=== PATIENT | male | born 1985 | race Caucasian/White ===

== ENCOUNTER → 2020-12-31 10:59 | Outpatient (BNVA) | payer MEDICARE, MEDICAID, SELFPAY | PROVIDERS: Family Provider Nurse Practitioner; PCP Nurse Practitioner; Visit Provider Nurse Practitioner | DX: M54.9 Dorsalgia, unspecified (principal); G89.29 Other chronic pain; I10 Essential (primary) hypertension; K21.9 Gastro-esophageal reflux disease without esophagitis; F41.8 Other specified anxiety disorders; E78.2 Mixed hyperlipidemia; G47.9 Sleep disorder, unspecified; K05.10 Chronic gingivitis, plaque induced | CPT/HCPCS: 80053; 80061; 84443; 85025 ==

== ENCOUNTER 2021-02-03 16:34 | Outpatient (CLI) | payer MEDICARE, MEDICAID, SELFPAY ==
[2021-02-03 17:28] LABS: Basophils # 0.1 10^3/uL (0.0-0.1); Basophils % 0.9 %; Eosinophils # 0.1 10^3/uL (0.0-0.8); Eosinophils % 1.8 %; Hematocrit 47.4 % (42.0-52.0); Hemoglobin 15.8 g/dL (11.7-16.6); Lymphocytes # 1.8 10^3/uL (0.8-4.8); Lymphocytes % 31.8 %; Mean Corpuscular HGB Conc 33.3 g/dL (30.0-36.0); Mean Corpuscular Volume 92.9 fl (80-94); Mean Platelet Volume 11.5 fL (7.4-10.4); Monocytes # 0.4 10^3/uL (0.2-0.9); Monocytes % 7.4 %; Neutrophils # 3.22 10^3/uL (1.8-7.7); Neutrophils % 57.7 %; Nucleated Red Blood Cells % 0 %; Platelet Count 279 10^3/cmm (130-400); Red Cell Distribution Width 12.8 % (12.1-15.1); White Blood Count 5.6 10^3/uL (4.0-10.0)
[2021-02-03 17:33] LABS: Partial Thromboplastin Time 29.9 SECONDS (23.9-36.7)
[2021-02-03 18:01] LABS: Alanine Aminotransferase 43 U/L (0-41); Albumin Level 4.1 g/dL (3.5-5.2); Alkaline Phosphatase 116 IU/L (40-130); Anion Gap 14.7 (5-19); Aspartate Amino Transferase 24 U/L (0-40); Blood Urea Nitrogen 13 mg/dL (6-20); Calcium 8.4 mg/dL (8.5-10.5); Carbon Dioxide 25 mmol/L (22-29); Chloride 106 mmol/L (98-107); Glomerular Filtration Rate 127.6 mL/min (90-130); Glucose 88 mg/dL (65-115); Osmolality Calculated 292 mOsm/kg (285-295); Potassium 4.7 mmol/L (3.5-5.1); Sodium 141 mmol/L (136-145); Total Bilirubin 0.2 mg/dL (0.15-1.2); Total Protein 7.1 g/dL (6.6-8.7)
== END 2021-02-03 16:35 | disposition home or self-care (01) ==
LOC: LAB 16:43
PROVIDERS: PCP Nurse Practitioner; Visit Provider Surgery Surgical Oncology
DX: Z01.818 Encounter for other preprocedural examination (principal)
CPT/HCPCS: 36415; 80053; 85025; 85730

== ENCOUNTER → 2021-02-04 16:52 | Outpatient (BNVA) | payer MEDICARE, MEDICAID, SELFPAY | PROVIDERS: PCP Nurse Practitioner; Visit Provider Family Medicine | DX: Z01.812 Encounter for preprocedural laboratory examination (principal); Z20.822 Contact with and (suspected) exposure to COVID-19 | CPT/HCPCS: 87635 ==

== ENCOUNTER → 2021-02-17 16:27 | Outpatient (BNVA) | payer MEDICARE, MEDICAID, SELFPAY | PROVIDERS: PCP Nurse Practitioner; Visit Provider Specialist | DX: G40.909 Epilepsy, unspecified, not intractable, without status epilepticus (principal); Z96.82 Presence of neurostimulator; F17.200 Nicotine dependence, unspecified, uncomplicated | CPT/HCPCS: 95972; 99203; 99205 ==

== ENCOUNTER → 2021-03-24 16:48 | Outpatient (BNVA) | payer MEDICARE, MEDICAID, SELFPAY | PROVIDERS: PCP Nurse Practitioner; Visit Provider Nurse Practitioner | DX: M54.9 Dorsalgia, unspecified (principal); G89.29 Other chronic pain; E03.8 Other specified hypothyroidism; I10 Essential (primary) hypertension; K21.9 Gastro-esophageal reflux disease without esophagitis; F41.8 Other specified anxiety disorders; E78.2 Mixed hyperlipidemia; K05.10 Chronic gingivitis, plaque induced; J30.89 Other allergic rhinitis; G47.9 Sleep disorder, unspecified | CPT/HCPCS: 80053; 84443 ==

== ENCOUNTER → 2021-04-08 15:29 | Outpatient (BNVA) | payer MEDICARE, MEDICAID, SELFPAY | PROVIDERS: PCP Nurse Practitioner; Visit Provider Specialist | DX: G40.909 Epilepsy, unspecified, not intractable, without status epilepticus (principal); F41.8 Other specified anxiety disorders; G43.019 Migraine without aura, intractable, without status migrainosus; Z96.82 Presence of neurostimulator | CPT/HCPCS: 95970; 99214 ==

== ENCOUNTER → 2021-07-28 10:10 | Outpatient (BNVA) | payer MEDICARE, MEDICAID, SELFPAY | PROVIDERS: PCP Nurse Practitioner; Visit Provider Nurse Practitioner | DX: I10 Essential (primary) hypertension (principal); R73.9 Hyperglycemia, unspecified | CPT/HCPCS: 80053; 80061; 83036; 84443; 85025 ==

== ENCOUNTER 2021-08-21 09:29 | Outpatient (CLI) | payer MEDICARE, MEDICAID, SELFPAY ==
--- NOTE | 2021-08-21 10:00 | US_ITS ---
WS: [id number] RIGHT UPPER QUADRANT ULTRASOUND HISTORY: R74.8 - Abnormal levels of other serum enzymes COMPARISON: None available. Liver: 18.1 cm in length. Moderately enlarged liver. Coarse echotexture and poor evaluation of the en tire liver. Mass would be difficult to exclude. Portal Vein: Normal hepatopetal flow with monophasic waveform. Gallbladder: Normally distended gallbladder with no stones or wall thickening. CBD: 0.4 cm Pancreas: Completely obscured. Right kidney: 11.2 cm in length. Normal size and echogenicity. No hydronephrosis or mass. Aorta and IVC: Poorly visualized. No ascites. US/US liver [id number] IMPRESSION: 1. Technically very difficult and limited evaluation of the RIGHT upper quadra nt due to body habitus. 2. Moderate enlargement of the liver with hepatic steatosis. The entire liver is not well visualized. 3. Negative gallbladder. 4. Pancreas not identified.
== END 2021-08-21 09:30 | disposition home or self-care (01) ==
PROVIDERS: PCP Nurse Practitioner; Visit Provider Nurse Practitioner
DX: R74.8 Abnormal levels of other serum enzymes (principal); R16.0 Hepatomegaly, not elsewhere classified; K76.0 Fatty (change of) liver, not elsewhere classified
CPT/HCPCS: 76705

== ENCOUNTER → 2021-10-13 15:05 | Outpatient (BNVA) | payer MEDICARE, MEDICAID, SELFPAY | PROVIDERS: PCP Nurse Practitioner; Visit Provider Specialist | DX: G43.711 Chronic migraine without aura, intractable, with status migrainosus (principal); G40.109 Localization-related (focal) (partial) symptomatic epilepsy and epileptic syndromes with simple partial seizures, not intractable, without status epilepticus | CPT/HCPCS: 99214 ==

== ENCOUNTER → 2021-10-30 10:17 | Outpatient (BNVA) | payer MEDICARE, MEDICAID, SELFPAY | PROVIDERS: PCP Nurse Practitioner; Visit Provider Specialist | DX: G43.711 Chronic migraine without aura, intractable, with status migrainosus (principal); G40.909 Epilepsy, unspecified, not intractable, without status epilepticus; Z96.82 Presence of neurostimulator | CPT/HCPCS: 64615; 99212; 99213; J0585 ==

== ENCOUNTER → 2021-11-14 14:46 | Outpatient (BNVA) | payer MEDICARE, MEDICAID, SELFPAY | PROVIDERS: PCP Nurse Practitioner; Visit Provider Podiatrist Foot & Ankle Surgery | DX: L60.0 Ingrowing nail (principal); L60.3 Nail dystrophy | CPT/HCPCS: 11750; 99203; A6219; A6446 ==

== ENCOUNTER → 2021-12-04 08:30 | Outpatient (BNVA) | payer MEDICARE, MEDICAID, SELFPAY | PROVIDERS: PCP Nurse Practitioner; Visit Provider Podiatrist Foot & Ankle Surgery | DX: L60.0 Ingrowing nail (principal); L60.3 Nail dystrophy | CPT/HCPCS: 11750; 99213 ==

== ENCOUNTER → 2021-12-18 11:35 | Outpatient (BNVA) | payer MEDICARE, MEDICAID, SELFPAY | PROVIDERS: PCP Nurse Practitioner; Visit Provider Podiatrist Foot & Ankle Surgery | DX: L60.0 Ingrowing nail (principal); L60.3 Nail dystrophy | CPT/HCPCS: 99213; 99214 ==

== ENCOUNTER → 2022-01-14 16:54 | Outpatient (BNVA) | payer MEDICARE, MEDICAID, SELFPAY | PROVIDERS: PCP Nurse Practitioner; Visit Provider Nurse Practitioner | DX: E03.8 Other specified hypothyroidism (principal); E55.9 Vitamin D deficiency, unspecified; E78.2 Mixed hyperlipidemia; M54.9 Dorsalgia, unspecified; G89.29 Other chronic pain; F41.8 Other specified anxiety disorders; K05.10 Chronic gingivitis, plaque induced; J30.89 Other allergic rhinitis; I10 Essential (primary) hypertension; K21.9 Gastro-esophageal reflux disease without esophagitis; M25.561 Pain in right knee; M25.562 Pain in left knee | CPT/HCPCS: 80053; 82306; 84443; 85025 ==

== ENCOUNTER 2022-02-05 12:58 | Outpatient (CLI) | payer MEDICARE, MEDICAID, SELFPAY ==
--- NOTE | 2022-02-05 13:17 | XRR_ITS ---
PROCEDURE INFORMATION: Exam: XR Right Knee Exam date and time: 02/05/2022 1:33 PM Age: 36 years old Clinical indication: Pain; Bilateral; Prior surgery; Surgery type: Bilat knees, RT hip(partially fused); Additional info: M25.561 - pain in right knee TECHNIQUE: Imaging protocol: Radiologic exam of the Right knee. Views: 3 views. COMPARISON: MR knee RT wo con* [id number] 02/18/2016 4:23 PM FINDINGS: Bones/joints: Normal. Soft tissues: Normal. XR/XR knee RT 3V* [id number] IMPRESSION: No acute findings.
--- NOTE | 2022-02-05 13:17 | XRR_ITS ---
PROCEDURE INFORMATION: Exam: XR Left Knee Exam date and time: 02/05/2022 1:33 PM Age: 36 years old Clinical indication: Pain; Bilateral; Prior surgery; Patient HX: Bilat knees, RT hip(partially fused); Additional info: M25.561 - pain in right knee TECHNIQUE: Imaging protocol: Radiologic exam of the Left knee. Views: 3 views. COMPARISON: No relevant prior studies available. FINDINGS: Bones/joints: Normal. Soft tissues: Normal. XR/XR knee LT 3V* [id number] IMPRESSION: No acute findings.
== END 2022-02-05 12:59 | disposition home or self-care (01) ==
LOC: RAD 13:01
PROVIDERS: PCP Nurse Practitioner; Visit Provider Nurse Practitioner
DX: M25.561 Pain in right knee (principal); M25.562 Pain in left knee
CPT/HCPCS: 73562

== ENCOUNTER → 2022-04-30 15:39 | Outpatient (BNVA) | payer MEDICARE, MEDICAID, SELFPAY | PROVIDERS: PCP Nurse Practitioner; Visit Provider Specialist | DX: G43.711 Chronic migraine without aura, intractable, with status migrainosus (principal); G40.909 Epilepsy, unspecified, not intractable, without status epilepticus; Z96.82 Presence of neurostimulator; Z45.42 Encounter for adjustment and management of neurostimulator | CPT/HCPCS: 64615; 95970; J0585 ==

== ENCOUNTER → 2022-07-30 15:07 | Outpatient (BNVA) | payer MEDICARE, MEDICAID, SELFPAY | PROVIDERS: PCP Nurse Practitioner; Visit Provider Specialist | DX: G40.109 Localization-related (focal) (partial) symptomatic epilepsy and epileptic syndromes with simple partial seizures, not intractable, without status epilepticus (principal); G40.309 Generalized idiopathic epilepsy and epileptic syndromes, not intractable, without status epilepticus; Z96.82 Presence of neurostimulator | CPT/HCPCS: 95970; 99214 ==

== ENCOUNTER → 2022-08-03 15:17 | Outpatient (BNVA) | payer MEDICARE, MEDICAID, SELFPAY | PROVIDERS: PCP Nurse Practitioner; Visit Provider Nurse Practitioner | DX: M54.9 Dorsalgia, unspecified (principal); G89.29 Other chronic pain; F41.8 Other specified anxiety disorders; K21.9 Gastro-esophageal reflux disease without esophagitis; E03.8 Other specified hypothyroidism; I10 Essential (primary) hypertension; E78.2 Mixed hyperlipidemia; E55.9 Vitamin D deficiency, unspecified; J30.89 Other allergic rhinitis | CPT/HCPCS: 80053; 80061; 82306; 84443 ==

== ENCOUNTER → 2022-10-26 15:56 | Outpatient (BNVA) | payer MEDICARE, MEDICAID, SELFPAY | PROVIDERS: PCP Nurse Practitioner; Visit Provider Nurse Practitioner | DX: F41.8 Other specified anxiety disorders (principal); K21.9 Gastro-esophageal reflux disease without esophagitis; M54.9 Dorsalgia, unspecified; G89.29 Other chronic pain; E55.9 Vitamin D deficiency, unspecified; E78.2 Mixed hyperlipidemia; J30.89 Other allergic rhinitis; E03.8 Other specified hypothyroidism; I10 Essential (primary) hypertension | CPT/HCPCS: 80053; 82607; 85025 ==

== ENCOUNTER → 2022-12-01 12:01 | Outpatient (BNVA) | payer MEDICARE, MEDICAID, SELFPAY | PROVIDERS: PCP Nurse Practitioner; Visit Provider Specialist | DX: G40.309 Generalized idiopathic epilepsy and epileptic syndromes, not intractable, without status epilepticus (principal); G43.711 Chronic migraine without aura, intractable, with status migrainosus; Z96.82 Presence of neurostimulator | CPT/HCPCS: 95970; 99214 ==

== ENCOUNTER → 2023-02-05 09:55 | Outpatient (BNVA) | payer MEDICARE, MEDICAID, SELFPAY | PROVIDERS: PCP Nurse Practitioner Family; Visit Provider Nurse Practitioner Family | DX: I10 Essential (primary) hypertension; M25.50 Pain in unspecified joint; E78.2 Mixed hyperlipidemia; E55.9 Vitamin D deficiency, unspecified | CPT/HCPCS: 80053; 80061; 82306; 82607; 83735; 84443; 84550; 85025; 85651; 86038; 86140; 86431 ==

== ENCOUNTER → 2023-05-03 18:00 | Outpatient (BNVA) | payer MEDICARE, MEDICAID, SELFPAY | PROVIDERS: PCP Nurse Practitioner Family; Visit Provider Nurse Practitioner Family | DX: E55.9 Vitamin D deficiency, unspecified (principal); E78.2 Mixed hyperlipidemia; I10 Essential (primary) hypertension; M25.50 Pain in unspecified joint; F41.8 Other specified anxiety disorders; M54.9 Dorsalgia, unspecified; G89.29 Other chronic pain; J30.89 Other allergic rhinitis; E03.8 Other specified hypothyroidism; K21.9 Gastro-esophageal reflux disease without esophagitis; R73.9 Hyperglycemia, unspecified; R23.2 Flushing; G47.00 Insomnia, unspecified | CPT/HCPCS: 80053; 80061; 82306; 82607; 83036; 83735; 84403; 84443; 85025 ==

== ENCOUNTER → 2023-07-28 09:04 | Outpatient (BNVA) | payer MEDICARE, MEDICAID, SELFPAY | PROVIDERS: PCP Nurse Practitioner Family; Visit Provider Specialist | DX: G43.711 Chronic migraine without aura, intractable, with status migrainosus (principal); G40.109 Localization-related (focal) (partial) symptomatic epilepsy and epileptic syndromes with simple partial seizures, not intractable, without status epilepticus; F41.8 Other specified anxiety disorders; Z96.89 Presence of other specified functional implants | CPT/HCPCS: 95970; 99215 ==

== ENCOUNTER → 2023-07-30 10:03 | Outpatient (BNVA) | payer MEDICARE, MEDICAID, SELFPAY | PROVIDERS: PCP Nurse Practitioner Family; Visit Provider Specialist | DX: Z96.89 Presence of other specified functional implants (principal); G40.909 Epilepsy, unspecified, not intractable, without status epilepticus | CPT/HCPCS: 80048; 80175; 84403 ==

== ENCOUNTER → 2023-08-11 11:49 | Outpatient (BNVA) | payer MEDICARE, MEDICAID, SELFPAY | PROVIDERS: PCP Nurse Practitioner Family; Visit Provider Internal Medicine Rheumatology | DX: Z79.899 Other long term (current) drug therapy (principal); M19.90 Unspecified osteoarthritis, unspecified site; M45.6 Ankylosing spondylitis lumbar region; M06.9 Rheumatoid arthritis, unspecified; Z71.85 Encounter for immunization safety counseling | CPT/HCPCS: 72100; 73130; 73630; 99204 ==

== ENCOUNTER → 2023-08-19 15:05 | Outpatient (BNVA) | payer MEDICARE, MEDICAID, SELFPAY | PROVIDERS: PCP Nurse Practitioner Family; Visit Provider Specialist | DX: Z96.89 Presence of other specified functional implants (principal); G40.009 Localization-related (focal) (partial) idiopathic epilepsy and epileptic syndromes with seizures of localized onset, not intractable, without status epilepticus; G43.711 Chronic migraine without aura, intractable, with status migrainosus | CPT/HCPCS: 64615; 99213 ==

== ENCOUNTER 2023-10-19 07:53 | Outpatient (CLI) | payer MEDICARE, MEDICAID, SELFPAY ==
[2023-10-19 09:37] LABS: Estmated Average Glucose 105; Hemoglobin A1C 5.3 % (4.0-6.0)
[2023-10-19 09:49] LABS: Alanine Aminotransferase 27 U/L (0-41); Albumin Level 3.9 g/dL (3.5-5.2); Alkaline Phosphatase 68 U/L (40-130); Aspartate Amino Transferase 19 U/L (0-40); Blood Urea Nitrogen 13 mg/dL (6-20); Calcium 8.8 mg/dL (8.5-10.5); Carbon Dioxide 23 mmol/L (22-29); Chloride 104 mmol/L (98-107); Chol HDL Ratio 3.58 mg/dL (1.0-5.00); Cholesterol 161 mg/dL (0-200); Globulin 2.8 g/dL (1.3-4.6); Glomerular Filtration Rate 67.4 mL/min (90-130); Glucose 115 mg/dL (65-115); HDL Cholesterol 45 mg/dL (60-100); LDL Cholesterol Calculated 99 mg/dL (50-129); Osmolality Calculated 289 mOsm/kg (285-295); Sodium 139 mmol/L (136-145); Testosterone Total 431.2 ng/dL (249-836); Thyroid Stimulating Hormone 1.45 uIU/mL (0.27-4.20); Total Bilirubin 0.4 mg/dL (0.15-1.2); Total Protein 6.7 g/dL (6.6-8.7); Triglycerides 84 mg/dL (0-150)
== END 2023-10-19 07:54 | disposition home or self-care (01) ==
LOC: LAB 07:55
PROVIDERS: Absent Provider Internal Medicine Rheumatology; PCP Nurse Practitioner Family; Visit Provider Nurse Practitioner Family
DX: R73.9 Hyperglycemia, unspecified (principal); E03.8 Other specified hypothyroidism; E78.2 Mixed hyperlipidemia
CPT/HCPCS: 36415; 80053; 80061; 83036; 84403; 84443

== ENCOUNTER → 2023-11-02 12:34 | Outpatient (BNVA) | payer MEDICARE, MEDICAID, SELFPAY | PROVIDERS: PCP Nurse Practitioner Family; Visit Provider Internal Medicine Rheumatology | DX: M06.09 Rheumatoid arthritis without rheumatoid factor, multiple sites (principal); N18.9 Chronic kidney disease, unspecified; Z79.899 Other long term (current) drug therapy; Z71.85 Encounter for immunization safety counseling; F17.290 Nicotine dependence, other tobacco product, uncomplicated; Z88.2 Allergy status to sulfonamides | CPT/HCPCS: 99214 ==

== ENCOUNTER → 2023-11-18 11:59 | Outpatient (BNVA) | payer MEDICARE, MEDICAID, SELFPAY | PROVIDERS: PCP Nurse Practitioner Family; Visit Provider Specialist | DX: Z96.89 Presence of other specified functional implants (principal); G43.711 Chronic migraine without aura, intractable, with status migrainosus; G40.109 Localization-related (focal) (partial) symptomatic epilepsy and epileptic syndromes with simple partial seizures, not intractable, without status epilepticus | CPT/HCPCS: 64615; 95970; 99214 ==

== ENCOUNTER → 2023-12-01 11:33 | Outpatient (BNVA) | payer MEDICARE, MEDICAID, SELFPAY | PROVIDERS: PCP Nurse Practitioner Family; Visit Provider Specialist | DX: G43.019 Migraine without aura, intractable, without status migrainosus (principal); G43.711 Chronic migraine without aura, intractable, with status migrainosus; M21.969 Unspecified acquired deformity of unspecified lower leg | CPT/HCPCS: 99214 ==

== ENCOUNTER → 2023-12-23 10:38 | Outpatient (BNVA) | payer MEDICARE, MEDICAID, SELFPAY | PROVIDERS: PCP Nurse Practitioner Family; Visit Provider Nurse Practitioner Family | DX: Z11.1 Encounter for screening for respiratory tuberculosis (principal) | CPT/HCPCS: 86480 ==

== ENCOUNTER → 2024-01-06 14:58 | Outpatient (BNVA) | payer MEDICARE, MEDICAID, SELFPAY | PROVIDERS: PCP Nurse Practitioner Family; Visit Provider Physician Assistant | DX: M21.961 Unspecified acquired deformity of right lower leg; M25.561 Pain in right knee; M25.562 Pain in left knee | CPT/HCPCS: 73560; 73565; 99203 ==

== ENCOUNTER → 2024-02-17 13:45 | Outpatient (BNVA) | payer MEDICARE, MEDICAID, SELFPAY | PROVIDERS: PCP Nurse Practitioner Family; Visit Provider Specialist | DX: Z96.89 Presence of other specified functional implants (principal); G40.009 Localization-related (focal) (partial) idiopathic epilepsy and epileptic syndromes with seizures of localized onset, not intractable, without status epilepticus; G43.711 Chronic migraine without aura, intractable, with status migrainosus | CPT/HCPCS: 64615; 99212 ==

== ENCOUNTER 2024-02-25 13:30 | Outpatient (CLI) | payer MEDICARE, MEDICAID, SELFPAY ==
--- NOTE | 2024-02-25 13:30 | IR_ITS ---
WS: [id number] RIGHT KNEE ARTHROGRAM Fluoroscopic guided right knee arthrogram. CLINICAL INFORMATION: M23.305 - Other meniscus derangements, unspecified medial... TECHNIQUE: The procedure including risks, benefits, and complications were discussed with the patient , who agreed to proceed. Timeout was performed. Using sterile technique, the patient was prepped and draped in the usual sterile fashion. After 1% lidocaine injection using fluoroscopic guidance, a 22-g auge spinal needle was advanced into the RIGHT patellofemoral compartment. Subsequently 40 cc of a mi xture containing 10 cc normal saline, 30 cc Omnipaque 240 was administered. No immediate complication s. FLUOROSCOPY TIME: 3min [id number] # of spot films: 6 IR/[place] [id number] IMPRESSION: Uncomplicated right knee fluoroscopic guided arthrogram. CT to follow.
--- NOTE | 2024-02-25 13:40 | CT_ITS ---
WS: [email or web address] CT RIGHT knee arthrogram INDICATION: RIGHT knee pain TECHNIQUE: CT RIGHT knee arthrogram with coronal and sagittal reformatted images. FINDINGS: Chronic appearing lateral subluxation of the patella with advanced grade IV chondromalacia patella. Distal quadriceps and patella tendons appear intact. ACL and PCL appear intact. Moderate to advanced degenerative narrowing in the medial and lateral joint compartments with hypertrophic spurri ng along the joint line. Chronic thinning of the medial and lateral meniscus with evidence of prior p artial meniscectomies. No definite acute appearing meniscal tears. Fibula head is normal. Medial and lateral collateral ligaments appear grossly intact. Medial and lateral patellar retinacula appear ronnie ssly intact. CT/CT knee RT w con [id number] IMPRESSION: 1. Chronic knee deformity with lateral subluxation of the patella suspicious f or chronic patellar instability. Recommend clinical correlation. 2. Grade IV chondromalacia patella. 3. ACL and PCL appear intact. 4. Chronic thinning of the medial and lateral meniscus with presumed prior par tial meniscectomies. No definite acute appearing meniscal tears today. 5. Moderate to advanced degenerative narrowing medial and lateral joint compar tments with slight hypertrophic changes.
[2024-02-25] MEDS: iohexol 240 mg/mL 50 mL Btl 30 ML INTRA-ARTI (14:48)
== END 2024-02-25 13:39 | disposition home or self-care (01) ==
PROVIDERS: PCP Nurse Practitioner Family; Visit Provider Student in an Organized Health Care Education/Training Program
DX: S83.001A Unspecified subluxation of right patella, initial encounter (principal); M22.41 Chondromalacia patellae, right knee; M17.11 Unilateral primary osteoarthritis, right knee; X58.XXXA Exposure to other specified factors, initial encounter
CPT/HCPCS: 27369; 73701; 77002

== ENCOUNTER → 2024-03-09 08:37 | Outpatient (BNVA) | payer MEDICARE, MEDICAID, SELFPAY | PROVIDERS: PCP Nurse Practitioner Family; Visit Provider Orthopaedic Surgery | DX: M54.9 Dorsalgia, unspecified (principal); M54.2 Cervicalgia; G89.29 Other chronic pain | CPT/HCPCS: 72050; 72072; 72110; 99204 ==

== ENCOUNTER → 2024-03-24 11:50 | Outpatient (BNVA) | payer MEDICARE, MEDICAID, SELFPAY | PROVIDERS: PCP Nurse Practitioner Family; Visit Provider Nurse Practitioner Family | DX: I10 Essential (primary) hypertension (principal); E78.2 Mixed hyperlipidemia; E03.8 Other specified hypothyroidism; R73.9 Hyperglycemia, unspecified; N18.9 Chronic kidney disease, unspecified | CPT/HCPCS: 80053; 80061; 82043; 83036; 85025 ==

== ENCOUNTER → 2024-04-04 13:58 | Outpatient (BNVA) | payer MEDICARE, MEDICAID, SELFPAY | PROVIDERS: PCP Nurse Practitioner Family; Visit Provider Student in an Organized Health Care Education/Training Program | DX: M17.11 Unilateral primary osteoarthritis, right knee; M21.961 Unspecified acquired deformity of right lower leg | CPT/HCPCS: 99213 ==

== ENCOUNTER → 2024-04-19 11:54 | Outpatient (BNVA) | payer MEDICARE, MEDICAID, SELFPAY | PROVIDERS: PCP Nurse Practitioner Family; Visit Provider Nurse Practitioner Family | DX: R79.89 Other specified abnormal findings of blood chemistry (principal) | CPT/HCPCS: 80053 ==

== ENCOUNTER → 2024-05-26 13:30 | Outpatient (BNVA) | payer MEDICAID, MEDICARE, SELFPAY | PROVIDERS: PCP Nurse Practitioner Family; Visit Provider Specialist | DX: G43.711 Chronic migraine without aura, intractable, with status migrainosus (principal); Z96.89 Presence of other specified functional implants; G40.109 Localization-related (focal) (partial) symptomatic epilepsy and epileptic syndromes with simple partial seizures, not intractable, without status epilepticus | CPT/HCPCS: 64615; 99214 ==

== ENCOUNTER → 2024-06-12 10:40 | Outpatient (BNVA) | payer MEDICAID, SELFPAY | PROVIDERS: PCP Nurse Practitioner Family; Visit Provider Internal Medicine Rheumatology | DX: Z79.899 Other long term (current) drug therapy (principal); M06.09 Rheumatoid arthritis without rheumatoid factor, multiple sites; M21.20 Flexion deformity, unspecified site | CPT/HCPCS: 20600; 99214; J1010 ==

== ENCOUNTER → 2024-07-14 14:48 | Outpatient (BNVA) | payer MEDICARE, MEDICAID, SELFPAY | PROVIDERS: Family Provider Nurse Practitioner Family; PCP Nurse Practitioner Family; Visit Provider Nurse Practitioner Family | DX: R05.9 Cough, unspecified (principal) | CPT/HCPCS: 87400; 87426 ==

== ENCOUNTER 2024-07-18 07:24 | Outpatient (CLI) | payer MEDICARE, MEDICAID, SELFPAY ==
--- NOTE | 2024-07-18 07:30 | US_ITS ---
WS: [id number] RENAL ULTRASOUND HISTORY: N18.9 - Chronic kidney disease, unspecified COMPARISON: 08/21/2021 TECHNIQUE: 2-D and color Doppler imaging of the kidney submitted. Right kidney: 11.5 cm x 5.4 cm x 6.0 cm. Cortex: 1.0 cm Poorly visualized kidney due to body habitus. Mild thinning of the cortex. No hydronephrosis. It would be difficult to exclude mass. Left kidney: 11.6 cm x 5.2 cm x 5.5 cm. Cortex: 1.0 cm Mild thinning of the cortex. The entire kidney is not well visualized. No hydronephrosis. Aorta: Poorly visualized. Urinary Bladder: Minimally distended. US/US renal BI* [id number] IMPRESSION: 1. Technically difficult and limited evaluation of the kidneys due to body hab itus. 2. No hydronephrosis. Renal mass would be difficult to exclude.
== END 2024-07-18 07:25 | disposition home or self-care (01) ==
LOC: RAD 07:24
PROVIDERS: Family Provider Nurse Practitioner Family; PCP Nurse Practitioner Family; Visit Provider Nurse Practitioner Family
DX: N18.9 Chronic kidney disease, unspecified (principal); R93.422 Abnormal radiologic findings on diagnostic imaging of left kidney; M65.341 Trigger finger, right ring finger; G56.21 Lesion of ulnar nerve, right upper limb; G56.01 Carpal tunnel syndrome, right upper limb; M21.241 Flexion deformity, right finger joints
CPT/HCPCS: 20600; 73130; 76770; 99214; J3301; J3490

== ENCOUNTER 2024-08-02 12:59 | Outpatient (CLI) | payer MEDICARE, MEDICAID, SELFPAY | END 2024-08-02 13:00 | disposition home or self-care (01) | LOC: SLEEP 13:00 | PROVIDERS: Family Provider Nurse Practitioner Family; PCP Nurse Practitioner Family; Visit Provider Nurse Practitioner Family | DX: G47.10 Hypersomnia, unspecified (principal); G47.36 Sleep related hypoventilation in conditions classified elsewhere | CPT/HCPCS: G0399 ==

== ENCOUNTER → 2024-10-17 13:08 | Outpatient (BNVA) | payer MEDICARE, MEDICAID, SELFPAY | PROVIDERS: Family Provider Nurse Practitioner Family; PCP Nurse Practitioner Family; Referring Provider Nurse Practitioner Family; Visit Provider Specialist | DX: G43.711 Chronic migraine without aura, intractable, with status migrainosus (principal); Z96.89 Presence of other specified functional implants | CPT/HCPCS: 64615; 95970; 99214; J0585; J9999 ==

== ENCOUNTER → 2024-10-24 08:49 | Outpatient (BNVA) | payer MEDICARE, MEDICAID, SELFPAY | PROVIDERS: Family Provider Nurse Practitioner Family; PCP Nurse Practitioner Family; Visit Provider Orthopaedic Surgery | DX: M54.2 Cervicalgia (principal) | CPT/HCPCS: 72050; 99213 ==

== ENCOUNTER → 2024-10-27 10:50 | Outpatient (BNVA) | payer MEDICARE, MEDICAID, SELFPAY | PROVIDERS: Family Provider Nurse Practitioner Family; PCP Nurse Practitioner Family; Visit Provider Nurse Practitioner Family | DX: I10 Essential (primary) hypertension (principal); E55.9 Vitamin D deficiency, unspecified; Z79.899 Other long term (current) drug therapy; E78.2 Mixed hyperlipidemia; R23.2 Flushing | CPT/HCPCS: 80053; 80061; 82040; 82306; 82607; 83036; 84270; 84403; 84443; 85025 ==

== ENCOUNTER 2024-11-01 20:00 | Outpatient (CLI) | payer MEDICARE, MEDICAID, SELFPAY | END 2024-11-01 20:01 | disposition home or self-care (01) | LOC: SLEEP 11-02 01:35 | PROVIDERS: Family Provider Nurse Practitioner Family; PCP Nurse Practitioner Family; Referring Provider Nurse Practitioner Family; Visit Provider Internal Medicine Pulmonary Disease | DX: G47.10 Hypersomnia, unspecified (principal) | CPT/HCPCS: 95810 ==

== ENCOUNTER → 2024-11-07 14:43 | Outpatient (BNVA) | payer MEDICARE, MEDICAID, SELFPAY | PROVIDERS: Family Provider Nurse Practitioner Family; PCP Nurse Practitioner Family; Referring Provider Student in an Organized Health Care Education/Training Program; Visit Provider Specialist | DX: M65.341 Trigger finger, right ring finger (principal); G56.21 Lesion of ulnar nerve, right upper limb; G56.01 Carpal tunnel syndrome, right upper limb | CPT/HCPCS: 95911 ==

== ENCOUNTER 2024-11-09 08:49 | Outpatient (CLI) | payer MEDICARE, MEDICAID, SELFPAY ==
--- NOTE | 2024-11-09 08:54 | CT_ITS ---
WS: [id number] CT THORACIC MYELOGRAM HISTORY: NECK PAIN TECHNIQUE: Contiguous 2.0 mm axial images are reviewed to thoracic spine. Images are reformatted in sagittal and coronal planes. All CT scans at [facility] use at least one of these dose optimization techniques: automated exposure control; mA and/or kV adjustment per patient size (includes targeted exams where dose is matched to clinical indication); or iterative reconstruction. DLP: 1718.71 mGy.cm COMPARISON: None available. Good contrast opacification of the subarachnoid space throughout the thoracic spine. Slight straightening of the normal thoracic kyphosis. No thoracic cord atrophy or enlargement. No cord compression. Dorsal column stimulator electrodes are noted at T9, T10 and T11. No central stenosis or cord compression. Facet joint arthropathy noted bilaterally beginning at T7-8 through T12-L1. Mild LEFT foraminal stenosis at T11-12 due to an osteophyte. No compression fractures. No destructive bone lesions. Paraspinal soft tissues are normal. Dependent changes noted at the lung bases. CT/CT thoracic spine w con [id number] IMPRESSION: 1. No high-grade thoracic spine stenosis or large disc protrusions. 2. Dorsal column stimulator with electrodes noted at T9, T10 and T11. 3. Facet joint arthropathy is mild from T7-8 through T12-L1. 4. Mild LEFT foraminal stenosis at T11-12.
--- NOTE | 2024-11-09 08:54 | CT_ITS ---
WS: [email or web address] CT CERVICAL MYELOGRAM HISTORY: neck pain Technique: All CT scans at [facility] use at least one of these dose optimization techniques: automated exposure control; mA and/or kV adjustment per patient size (includes targeted exams where dose is matched to clinical indication); or iterative reconstruction. DLP: 384.30 mGy.cm COMPARISON: 10/08/2020 Good opacification of thecal sac with contrast. Straightening of the normal cervical lordosis. Moderate degenerative disc space narrowing at C3-4. No cervical spine fracture. C1-C2: Small osteophytes at the predental space. No inferior displacement the cerebellar tonsils. C2-C3: Mild osteophytic ridging and facet arthritis. No stenosis. C3-C4: Mild to moderate osteophytic ridging. Focal osteophyte encroaches upon the RIGHT lateral thecal sac with effacement of CSF. Mild central with moderate RIGHT foraminal stenosis. Very minimal LEFT foraminal stenosis. Similar to the prior study. C4-C5: Mild osteophytic ridging with mild encroachment upon the ventral thecal sac and RIGHT foraminal stenosis. C5-C6: Small osteophytic osteophytes. No stenosis. C6-C7: No stenosis. Paravertebral soft tissues are negative. Mild curvature cervical spine. CT/CT cervical spine w con [id number] IMPRESSION: 1. No acute cervical spine fracture. 2. No high-grade central cervical stenosis. 3. C3-4: Mild central with moderate RIGHT foraminal stenosis and mild LEFT for aminal stenosis predominantly due to osteophytic ridging and facet disease. 4. C4-5: Mild osteophytic ridging encroaching upon the ventral thecal sac and mild RIGHT foraminal stenosis.
--- NOTE | 2024-11-09 09:00 | IR_ITS ---
WS: [email or web address] CERVICAL AND THORACIC MYELOGRAMs HISTORY: Neck Pain COMPARISON: None available. FLUOROSCOPY TIME: 2min [id number] # of spot films: 2 Procedure, risks and complications were explained to the patient. Risks including bleeding, infection, headaches, allergic reaction and seizures. Consent has been obtained. With the patient in prone position the skin over the lumbar region is cleansed with ChloraPrep and anesthetized with lidocaine. 22-gauge spinal needle is inserted into the thecal sac at the appropriate level determined by fluoroscopy. Omnipaque 240; 15 ml is injected slowly under fluoroscopy with no complications. Needle bevel is perpendicular to the longitudinal fibers of the dura. Stylet is reinserted prior to removal of the needle. Patient tolerated the procedure well. Patient will proceed to CT for further evaluation. Patient is placed in the Trendelenburg position to move the intrathecal contrast into the thoracic and cervical spines. Dorsal column stimulator wires are noted overlying the lumbar spine. Access into the subarachnoid space at L3 with no overlying wires along the pathway of the needle. IR/IR myelogram sp cervic/thorac IMPRESSION: Uncomplicated cervical and thoracic myelogram. CT cervical and thoracic myelogr am reports to follow.
[2024-11-09] MEDS: iohexol 240 mg/mL 50 mL Btl 25 ML INTRATHECA (10:44)
== END 2024-11-09 08:50 | disposition home or self-care (01) ==
LOC: RAD 08:50
PROVIDERS: Family Provider Nurse Practitioner Family; PCP Nurse Practitioner Family; Visit Provider Orthopaedic Surgery
DX: M48.02 Spinal stenosis, cervical region (principal); M48.04 Spinal stenosis, thoracic region; M47.814 Spondylosis without myelopathy or radiculopathy, thoracic region; M47.892 Other spondylosis, cervical region
CPT/HCPCS: 62305; 72126; 72129

== ENCOUNTER → 2024-11-14 10:24 | Outpatient (BNVA) | payer MEDICARE, MEDICAID, SELFPAY | PROVIDERS: Family Provider Nurse Practitioner Family; PCP Nurse Practitioner Family; Visit Provider Orthopaedic Surgery | DX: M54.2 Cervicalgia (principal) | CPT/HCPCS: 99214 ==

== ENCOUNTER → 2024-11-29 14:30 | Outpatient (BNVA) | payer MEDICARE, MEDICAID, SELFPAY | PROVIDERS: Family Provider Nurse Practitioner Family; PCP Nurse Practitioner Family; Visit Provider Student in an Organized Health Care Education/Training Program | DX: G56.01 Carpal tunnel syndrome, right upper limb (principal) | CPT/HCPCS: 20600; 99214; J3301; J3490 ==

== ENCOUNTER → 2024-12-04 14:52 | Outpatient (BNVA) | payer MEDICARE, MEDICAID, SELFPAY | PROVIDERS: Family Provider Nurse Practitioner Family; PCP Nurse Practitioner Family; Referring Provider Orthopaedic Surgery; Visit Provider Anesthesiology Pain Medicine | DX: M54.2 Cervicalgia (principal); M47.812 Spondylosis without myelopathy or radiculopathy, cervical region | CPT/HCPCS: 99204 ==

== ENCOUNTER 2024-12-22 06:30 | Outpatient (RCR) | payer MEDICARE, MEDICAID, SELFPAY | END 2025-01-21 23:59 | disposition home or self-care (01) | LOC: TPT 06:30 | PROVIDERS: Family Provider Nurse Practitioner Family; PCP Nurse Practitioner Family; Visit Provider Anesthesiology Pain Medicine | DX: M54.12 Radiculopathy, cervical region (principal) | CPT/HCPCS: 97110; 97162 ==

== ENCOUNTER → 2025-01-01 12:07 | Outpatient (BNVA) | payer MEDICARE, MEDICAID, SELFPAY | PROVIDERS: Family Provider Nurse Practitioner Family; PCP Nurse Practitioner Family; Referring Provider Nurse Practitioner Family; Visit Provider Internal Medicine | DX: Z79.890 Hormone replacement therapy (principal); Z79.899 Other long term (current) drug therapy; R79.89 Other specified abnormal findings of blood chemistry | CPT/HCPCS: 99204 ==

== ENCOUNTER → 2025-01-04 11:29 | Outpatient (BNVA) | payer MEDICARE, MEDICAID, SELFPAY | PROVIDERS: Family Provider Nurse Practitioner Family; PCP Nurse Practitioner Family; Visit Provider Internal Medicine Cardiovascular Disease | DX: R07.9 Chest pain, unspecified (principal); E78.2 Mixed hyperlipidemia; I10 Essential (primary) hypertension; F17.290 Nicotine dependence, other tobacco product, uncomplicated; Z86.73 Personal history of transient ischemic attack (TIA), and cerebral infarction without residual deficits; I25.2 Old myocardial infarction; I25.10 Atherosclerotic heart disease of native coronary artery without angina pectoris | CPT/HCPCS: 93005; 99204; 99214 ==

== ENCOUNTER → 2025-01-05 08:14 | Outpatient (BNVA) | payer MEDICARE, MEDICAID, SELFPAY | PROVIDERS: Family Provider Nurse Practitioner Family; PCP Nurse Practitioner Family; Visit Provider Internal Medicine | DX: Z79.890 Hormone replacement therapy (principal); Z79.899 Other long term (current) drug therapy | CPT/HCPCS: 83001; 83002; 84146; 84153; 84402; 84403 ==

== ENCOUNTER 2025-01-10 06:02 | Outpatient (CLI) | payer MEDICARE, MEDICAID, SELFPAY ==
--- NOTE | 2025-01-10 06:27 | ECG_ITS ---
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 Interpretive Statements Procedure: A total of 0.4 mg of Lexiscan was infused over 20 seconds. The stress phase was continued for a total of 5 minutes. Sestamibi was injected 20 seconds after the Lexiscan infusion. Vital signs and ECG findings: Based on the patient blood pressure was 167/80 with a heart rate of 88. The stress blood pressure was 166 over/97 with a heart rate of 99 bpm. During recovery, the patient's blood pressure was 171/96 with a heart rate of 95 bpm. The baseline EKG showed normal sinus rhythm with no ST abnormalities. There were mild nonspecific T wave abnormalities. There were no ST-T wave changes during stress or recovery. Conclusion: 1. Normal EKG response to Lexiscan infusion 2. No Lexiscan induced chest pain or cardiac arrhythmia. 3. Normal blood pressure and heart rate response. 4. Nuclear myocardial perfusion scan pending; see separate report. Electronically Signed On 01-18-2025 09:37:20 CDT by Rell Bunn M.D. [email or web address]
[2025-01-10 06:28] VITALS: BMI 40.4
--- NOTE | 2025-01-10 06:28 | NMCV_ITS ---
NM etta perf SPECT r/s* [id number] Bry Parks Ronald Age: 39 Gender: M : 1985 Exam Date: 01/10/2025 07:23 Ordering Phys: Rell Bunn MD ([email or web address]) Technologist: PARTH Nova Exam Location: [facility] Indications: cp STRESS TEST [facility] IMAGE PROTOCOL Rest/Stress 1 Lexiscan Day Radiopharmaceutical Dose (mCi) Administration Site Administered by Rest: Tc-99m 10.7 IV PARTH Nova Stress:Tc-99m 32.9 IV PARTH Cadena Rest: 10-Jan-2025 60 Discovery 630 Stress: 10-Jan-2025 30 Discovery 630 0.4mg Lexiscan. Supine position only as patient was unable to lay prone. Patient imaged with right arm down. SPECT RESULTS Technical Quality: Good Raw Data Analysis: Normal Image Corrections: No attenuation or motion correction applied Summed Stress Score: 1 Summed Rest Score: 0 Summed Difference Score: 1 PERFUSION FINDINGS SPECT images demonstrate homogeneous tracer distribution throughout the myocardium. FUNCTIONAL RESULTS (calculated via Gated SPECT) Stress Image LV EF (%): 67 Stress EDV (mL):106 TID: 1.1 Stress ESV (mL):35 FUNCTIONAL FINDINGS: There is normal left ventricular systolic function. IMPRESSIONS Myocardial perfusion imaging is normal. Haylee Keller MD (Electronically Signed) Final Date: 10 January 2025 12:43 S
[2025-01-10 08:10] VITALS: BP 169/92; PULSE 95
== END 2025-01-10 06:03 | disposition home or self-care (01) ==
LOC: CDL 06:04
PROVIDERS: PCP Nurse Practitioner Family; Visit Provider Internal Medicine Cardiovascular Disease
DX: R07.9 Chest pain, unspecified (principal)
CPT/HCPCS: 36415; 78452; 93017; 96374; A9500; J2785

== ENCOUNTER → 2025-01-18 09:31 | Outpatient (BNVA) | payer MEDICARE, MEDICAID, SELFPAY | PROVIDERS: PCP Nurse Practitioner Family; Visit Provider Specialist | DX: G43.711 Chronic migraine without aura, intractable, with status migrainosus (principal) | CPT/HCPCS: 64615; 99213; J0585; J9999 ==

== ENCOUNTER 2025-01-22 05:00 | Outpatient (RCR) | payer MEDICARE, MEDICAID, SELFPAY | END 2025-02-19 07:48 | disposition home or self-care (01) | LOC: TPT 05:00 | PROVIDERS: PCP Nurse Practitioner Family; Visit Provider Anesthesiology Pain Medicine | DX: M54.16 Radiculopathy, lumbar region (principal) | CPT/HCPCS: 97110; 97164 ==

== ENCOUNTER → 2025-02-08 11:44 | Outpatient (BNVA) | payer MEDICARE, MEDICAID, SELFPAY | PROVIDERS: PCP Nurse Practitioner Family; Visit Provider Nurse Practitioner Family | DX: I10 Essential (primary) hypertension (principal); Z79.899 Other long term (current) drug therapy; E78.2 Mixed hyperlipidemia | CPT/HCPCS: 80053; 80061; 83036; 84443; 85025 ==

== ENCOUNTER → 2025-02-14 08:21 | Outpatient (BNVA) | payer MEDICARE, MEDICAID, SELFPAY | PROVIDERS: PCP Nurse Practitioner Family; Visit Provider Student in an Organized Health Care Education/Training Program | DX: M65.341 Trigger finger, right ring finger (principal); G56.01 Carpal tunnel syndrome, right upper limb | CPT/HCPCS: 99214 ==

== ENCOUNTER → 2025-02-26 10:39 | Outpatient (BNVA) | payer MEDICARE, MEDICAID, SELFPAY | PROVIDERS: PCP Nurse Practitioner Family; Visit Provider Nurse Practitioner Family | DX: F41.8 Other specified anxiety disorders (principal); E78.2 Mixed hyperlipidemia; E03.8 Other specified hypothyroidism; I10 Essential (primary) hypertension; K21.9 Gastro-esophageal reflux disease without esophagitis; R79.89 Other specified abnormal findings of blood chemistry; M54.9 Dorsalgia, unspecified; G89.29 Other chronic pain; G47.00 Insomnia, unspecified; S40.812A Abrasion of left upper arm, initial encounter; W22.8XXA Striking against or struck by other objects, initial encounter; F17.290 Nicotine dependence, other tobacco product, uncomplicated | CPT/HCPCS: 80053; 86705; 86706; 86709; 86803; 87340 ==

== ENCOUNTER 2025-03-23 07:30 | Day surgery (SDC) | payer MEDICARE, MEDICAID, SELFPAY ==
[2025-03-23] VITALS (7 sets, daily range): BP systolic 98–133; BP diastolic 56–86; PULSE 78–88; RESP 14–20; TEMP 36.1–36.8; O2SAT 93–97; BMI 43.2
[2025-03-23] MEDS: acetaminophen 1,000 MG/100 ML PIGGYBACK 400 MG IV (08:00)
--- NOTE | 2025-03-23 08:10 | W.PM.OPSFHP ---
Same Day Surgery H&P Indication for Procedure/HPI DATE OF PROCEDURE: March 23, 2025 CHIEF COMPLAINT/INDICATIONFOR SURGICAL PROCEDURE: Right carpal tunnel syndrome, right ring finger trigger PREOP DIAGNOSIS: Right carpal tunnel syndrome, right ring finger trigger PLANNED PROCEDURE: Operation Date: 03/23/25 09:00 Proposed Procedures p RIGHT Carpal Tunnel Release(Right) - Jamil Hughes, DO s RIGHT RING Finger Trigger Finger Release(Right) - Jamil Hughes, DO Medications/Allergies* Home Medications ?Medication ?Instructions ?Recorded ?Confirmed ?Type multivitamin 1 tab PO DAILY 12/31/20 03/22/25 History glucosamine-chondroitin [Osteo 1 tab PO DAILY 08/11/23 03/22/25 History Bi-Flex] ascorbate calcium (vitamin C) 500 500 mg PO DAILY 10/27/24 03/22/25 History mg tablet mupirocin 2 % topical ointment 1 applic topical TID PRN Rash 01/04/25 03/22/25 History amitriptyline 50 mg tablet 50 mg PO BEDTIME 03/22/25 03/22/25 History buspirone 10 mg tablet 20 mg PO TID 03/22/25 03/22/25 History duloxetine 30 mg capsule,delayed 60 mg PO DAILY 03/22/25 03/22/25 History release ergocalciferol (vitamin D2) 1,250 1,250 mcg PO DAILY 03/22/25 03/22/25 History mcg (50,000 unit) capsule fenofibrate nanocrystallized 145 145 mg PO DAILY 03/22/25 03/22/25 History mg tablet hydroxyzine HCl 50 mg tablet 100 mg PO BEDTIME 03/22/25 03/22/25 History lamotrigine 200 mg tablet 200 mg PO BID 03/22/25 03/22/25 History levocetirizine 5 mg tablet 5 mg PO DAILY 03/22/25 03/22/25 History levothyroxine 50 mcg tablet 50 mcg PO DAILY 03/22/25 03/22/25 History lisinopril 5 mg tablet 5 mg PO DAILY 03/22/25 03/22/25 History magnesium oxide 200 mg PO DAILY 03/22/25 03/22/25 History meclizine 25 mg tablet 25 mg PO BID PRN Dizziness 03/22/25 03/22/25 History metoprolol tartrate 50 mg tablet 50 mg PO BID 03/22/25 03/22/25 History pantoprazole 40 mg tablet,delayed 40 mg PO BID 03/22/25 03/22/25 History release quetiapine 200 mg tablet 200 mg PO DAILY 03/22/25 03/22/25 History sucralfate 1 gram tablet 1 g PO BID 03/22/25 03/22/25 History tizanidine 4 mg tablet 4 mg PO TID PRN Muscle Spasm 03/22/25 03/22/25 History Allergies/Adverse Reactions Allergy/AdvReac Type Severity Reaction Status Date / Time sulfur (From Sulfur-8) Allergy Unknown closes air Verified 03/23/25 07:40 way latex Allergy ALGY-Hives Verified 03/23/25 07:40 tramadol AdvReac Severe ADR-Seizure Verified 03/23/25 07:40 Current Medications: Generic Name Dose Route Start Last Admin Trade Name Freq PRN Reason Stop Dose Admin Sodium Chloride 1,000 mls @ 30 mls/hr 03/23/25 07:15 03/23/25 07:56 Sodium Chloride 0.9% IV 03/24/25 07:14 30 mls/hr .Q24H JANENE Administration Pertinent History/Comorbid Conditions* Medical History (Updated 01/09/25 @ 13:39 by Breann Apodaca MD) Hypersomnia Enrolled in chronic care management Chronic steroid use Immunization counseling High risk medication use Rheumatoid arthritis Insomnia Adult onset hypothyroidism Gingivitis, chronic Anxiety with depression Sleep disorder Acid reflux Environmental and seasonal allergies Hyperlipidemia, mixed History of heat exhaustion 2003 CVA (cerebrovascular accident) 2003 right side face History of [place] (myocardial infarction) 2005 Epilepsy Essential (primary) hypertension Chronic back pain Migraine Sacral nerve stimulator present March 2020 Surgical History (Updated 08/06/22 @ 22:11 by KAIDEN Simons) History of knee surgery Bilateral knees scopes History of fracture of ankle right Status post VNS (vagus nerve stimulator) placement History of hip surgery right History of back surgery nerve simulator low back April 2020 Family History (Updated 03/23/24 @ 14:25 by Lindy Avila LPN) Father, pt reports that father in his early 50's Cancer Father Kidney Hypertension Smoker Denies family history of Diabetes Social History Smoking and tobacco/nicotine status: current every day tobacco/nicotine user (vapes) e-cigarettes E-Cigarette Details: vaporizer device and with nicotine Second hand smoke exposure: No Alcohol intake: former Substance/Drug Use: former Adopted: Yes Caregiver/support person: No Lives independently: Yes Household members: friend(s) Housing: House Marital status: Life Partner Number of children: 1 service: No Current occupational status: disabled Current occupational exposures/hazards: No Do you think of yourself as: Straight/Heterosexual Current gender identity: Female Pertinent Exam Findings alert, oriented x 3, operative site marked and procedure specific exam findings Please refer to anesthesia preoperative valuation for heart and lung examination Please refer to detailed orthopedic examination on 02/14/2025 listed below: Right Upper Extremity Exam: -negative Tinel's at elbow -Positive Tinel's at wristPositive median nerve compression test at the wrist, tenderness palpation over the A1 georges of the right ring finger patient does have a baseline flexion deformity of the right ring finger this can be passively fully extended he has a A1 georges tenderness with subtle triggering appreciated significant muscle spasming in his forearm and resistance to full extension of the right ring finger, thenar weakness noted, no significant appreciable atrophy of hand Recommendations Risks and benefits of procedure reviewed and Patient/family agree to proceed Surgery/Procedure today Other Plans: Plan to proceed to the OR today for right carpal tunnel release and right ring finger trigger release. Patient's failed conservative treatment and understands the ins and outs procedure risk benefits complication alternatives surgical nonsurgical treatment options. Understanding risk of surgery patient like proceed with surgical intervention. All questions answered at this time. Coding Level of Care Code Acute Code for Saul De Leon
[2025-03-23] MEDS: ceFAZolin 1,000 mg SDV 1000 MG IVP (08:53)
[2025-03-23] MEDS: ceFAZolin 2,000 MG in sodium chloride 0.9% (plus) 50 ML 100 MG IV (08:53)
[2025-03-23] MEDS: ROPivacaine 0.5% SDV 30 mL 50 MG INJECTION (08:56)
[2025-03-23] MEDS: lidocaine-epi 1% 20 mL INJ 5 ML INJECTION (08:56)
--- NOTE | 2025-03-23 09:34 | ANES.PREANE2 ---
Pre-Anesthetic Assessment Height/Weight: Height 1.93 m Weight 161.025 kg Temp Pulse Resp BP Pulse Ox O2 Del Method 97 F L 87 16 133/86 96 Room Air 03/23/25 07:48 03/23/25 07:48 03/23/25 07:48 03/23/25 07:48 03/23/25 07:48 03/23/25 07:49 Preop Diagnosis: Right carpal tunnel syndrome, right ring finger trigger Operation Date: 03/23/25 09:00 Proposed Procedures p RIGHT Carpal Tunnel Release(Right) - Jamil Starr, DO s RIGHT RING Finger Trigger Finger Release(Right) - Jamil Saul, DO Familial anesthetic complications: none Was Beta Kevin taken within 24 hours: Yes Was Clonidine taken within 24 hours: N/A Last intake: Intake Last Liquid Date 03/23/25 Last Liquid Time 06:00 Last Solid Date 03/22/25 Last Solid Time 21:00 Social No alcohol and No tobacco Exam alert, oriented x 3, clear to auscultation bilaterally and regular rate & rhythm Airway Mallampati: Class III Dentition: full CV/HEM Hypertension Chronic Renal Insufficiency GI Gastroesophageal Reflux Disease Metabolic Thyroid Disease [facility] [place] Rheumatoid Arthritis Neuropsych Seizure Anesthetic Plan ASA status: 3 Anesthesia: MAC Risk of > 500 ml blood loss (7ml/kg in children): No Medications/Allergies Home Medications ?Medication ?Instructions ?Recorded ?Confirmed ?Last Taken ?Type multivitamin 1 tab PO DAILY 12/31/20 03/22/25 03/15/25 History glucosamine-chondroitin [Osteo 1 tab PO DAILY 08/11/23 03/22/25 03/21/25 History Bi-Flex] clobazam 20 mg tablet 20 mg PO DAILY #30 tabs 10/17/24 03/22/25 03/21/25 Rx onabotulinumtoxinA 100 unit See Rx Instructions .Route 10/26/24 03/22/25 Unknown Rx solution for injection (Botox) .COMPLEX #2 ea ascorbate calcium (vitamin C) 500 500 mg PO DAILY 10/27/24 03/22/25 03/21/25 History mg tablet sumatriptan succinate 100 mg See Rx Instructions PO .COMPLEX 01/01/25 03/22/25 Unknown Rx tablet (Imitrex) #10 tabs mupirocin 2 % topical ointment 1 applic topical TID PRN Rash 01/04/25 03/22/25 03/15/25 History nitroglycerin 0.4 mg sublingual 0.4 mg sublingual Q5M PRN chest 01/04/25 03/22/25 Unknown Rx tablet pain #20 tabs etanercept 50 mg/mL (1 mL) 50 mg SUBCUT Q7D #4 mL 01/08/25 03/22/25 03/15/25 Rx subcutaneous pen injector (Enbrel SureVonick) prednisone 10 mg tablet 10 mg PO DAILY joint pain #90 tabs 01/18/25 03/22/25 03/21/25 Rx leflunomide 10 mg tablet 10 mg PO DAILY #90 tabs 03/02/25 03/22/25 03/21/25 Rx amitriptyline 50 mg tablet 50 mg PO BEDTIME 03/22/25 03/22/25 03/21/25 History buspirone 10 mg tablet 20 mg PO TID 03/22/25 03/22/25 03/21/25 History duloxetine 30 mg capsule,delayed 60 mg PO DAILY 03/22/25 03/22/25 03/21/25 History release ergocalciferol (vitamin D2) 1,250 1,250 mcg PO DAILY 03/22/25 03/22/25 03/15/25 History mcg (50,000 unit) capsule fenofibrate nanocrystallized 145 145 mg PO DAILY 03/22/25 03/22/25 03/21/25 History mg tablet hydroxyzine HCl 50 mg tablet 100 mg PO BEDTIME 03/22/25 03/22/25 03/21/25 History lamotrigine 200 mg tablet 200 mg PO BID 03/22/25 03/22/25 03/21/25 History levocetirizine 5 mg tablet 5 mg PO DAILY 03/22/25 03/22/25 03/21/25 History levothyroxine 50 mcg tablet 50 mcg PO DAILY 03/22/25 03/22/25 03/23/25 History lisinopril 5 mg tablet 5 mg PO DAILY 03/22/25 03/22/25 03/21/25 History magnesium oxide 200 mg PO DAILY 03/22/25 03/22/25 03/21/25 History meclizine 25 mg tablet 25 mg PO BID PRN Dizziness 03/22/25 03/22/25 03/21/25 History metoprolol tartrate 50 mg tablet 50 mg PO BID 03/22/25 03/22/25 03/23/25 History pantoprazole 40 mg tablet,delayed 40 mg PO BID 03/22/25 03/22/25 03/21/25 History release quetiapine 200 mg tablet 200 mg PO DAILY 03/22/25 03/22/25 03/21/25 History sucralfate 1 gram tablet 1 g PO BID 03/22/25 03/22/25 03/21/25 History tizanidine 4 mg tablet 4 mg PO TID PRN Muscle Spasm 03/22/25 03/22/25 03/21/25 History hydrocodone 5 mg-acetaminophen 325 1 tab PO Q6H PRN pain 7 days #28 03/23/25 Unknown Rx mg tablet tabs Allergies Allergy/AdvReac Type Severity Reaction Status Date / Time sulfur (From Sulfur-8) Allergy Unknown closes air Verified 03/23/25 07:40 way latex Allergy ALGY-Hives Verified 03/23/25 07:40 tramadol AdvReac Severe ADR-Seizure Verified 03/23/25 07:40 Current Medications Generic Name Dose Route Start Last Admin Trade Name Freq PRN Reason Stop Dose Admin Sodium Chloride 1,000 mls @ 30 mls/hr 03/23/25 07:15 03/23/25 07:56 Sodium Chloride 0.9% IV 03/24/25 07:14 30 mls/hr .Q24H JANENE Administration PFSH Anesthesia Medical History Hypersomnia Enrolled in chronic care management Chronic steroid use Immunization counseling High risk medication use Rheumatoid arthritis Insomnia Adult onset hypothyroidism Gingivitis, chronic Anxiety with depression Sleep disorder Acid reflux Environmental and seasonal allergies Hyperlipidemia, mixed History of heat exhaustion 2004 CVA (cerebrovascular accident) 2004 right side face History of [place] (myocardial infarction) 2005 Epilepsy Essential (primary) hypertension Chronic back pain Migraine Sacral nerve stimulator present March 2020 Surgical History History of knee surgery Bilateral knees scopes History of fracture of ankle right Status post VNS (vagus nerve stimulator) placement History of hip surgery right History of back surgery nerve simulator low back April 2020 Family History Father , pt reports that father in his early 50's Cancer Kidney Other Hypertension Smoker Denies family history of Diabetes Social History Smoking and tobacco/nicotine status: current every day tobacco/nicotine user (vapes) e-cigarettes E-Cigarette Details: vaporizer device and with nicotine Second hand smoke exposure: No Alcohol intake: former Substance/Drug Use: former Adopted: Yes Caregiver/support person: No Lives independently: Yes Household members: friend(s) Housing: House Marital status: Life Partner Number of children: 1 service: No Current occupational status: disabled Current occupational exposures/hazards: No Do you think of yourself as: Straight/Heterosexual Current gender identity: Female Data Anesthesia Cardiac Studies: Sestamibi Stress Test (Cardiology) 01/10/25 Cardiac Event Monitor 01/04/24
--- NOTE | 2025-03-23 09:47 | W.PM.BPON ---
Date of Procedure: 03/23/2025 Surgeon: Jamil Hughes DO Legal File Clerk(s): None Procedure(s) performed: Right carpal tunnel release Right ring finger trigger release Findings of the procedure(s): Patient underwent procedure as planned without issues or complications taken recovery in stable condition Estimated blood loss: 8 mL Specimen(s) removed: None Post-operative diagnosis: Right carpal tunnel syndrome, right ring finger trigger
--- NOTE | 2025-03-23 09:47 | PM.OP ---
Operative Report Date of procedure: March 23, 2025 Surgeon: Jamil Hughes DO Procedure: Preop Diagnosis: Right Carpal Tunnel Syndrome Right ring finger trigger Post-op diagnosis: Same Procedure done: 1. Right carpal tunnel release 2. Right ring finger trigger release Surgeon: Jamil Hughes DO Anesthesia: MAC (Local) Estimated blood loss: 8 mL Tourniquet time 17 minutes IV fluids: See anesthesia record Complications: None Findings: See operative report narrative Condition: stable Disposition: same day Brief History: Patient is a pleasant 39 year-old male with right carpal tunnel syndrome and right ring finger trigger. Patient has been worked up in the outpatient setting findings and physical examination consistent with this. Patient's had nerve conduction studies as well. Patient's failed conservative treatment at this point had relief but only short-term of a right carpal tunnel cortisone injection her right ring finger cortisone injection. we detailed out patient's risk benefits complication alternatives with surgical and nonsurgical treatment options. Through shared decision making, patient agrees to proceed with surgical intervention of the right carpal tunnel release and right ring finger trigger release. Patient understands and agrees with current plan. All questions answered. Patient elects to proceed with surgical intervention. Procedure: Patient seen and evaluated in the preoperative holding area. Consent was reviewed and signed with patient. Correct extremity was marked. Patient was seen evaluated by the anesthesia department once cleared for surgery was brought back to the operative suite. Patient was kept on [facility] in supine position all bony prominences were well-padded patient properly secured to the bed. Right upper extremity was then placed onto an armboard. A nonsterile tourniquet was applied to the Right upper arm. Patient underwent anesthesia per the anesthesia department. Patient's Right upper extremity was then prepped and draped in standard orthopedic fashion. Final timeout performed. Patient received appropriate preoperative antibiotics. Under sterile aseptic technique patient received local anesthesia over the preplanned carpal tunnel incision site. Esmarch was used to exsanguinate the Right upper extremity and tourniquet was insufflated to 250 mmHg. A standard mini open Right carpal tunnel incision was made. Starting distally at Roblero's cardinal line in line with the fourth ray extending proximally distal to the wrist crease centered over the carpal tunnel. Sharp scalpel incision was made through skin and subcutaneous tissue. Self-retaining retractor was placed and the palmar fascia was identified. This was then split longitudinally and direct visualization of the transverse carpal ligament was then made. I then utilizing scalpel feathered through the transverse carpal ligament until I entered the floor of the transverse carpal tunnel ligament into the carpal tunnel. Next I switched to dissection scissors and completed my release of the transverse carpal ligament distally with care to protect the recurrent motor branch. I completely released into the palmar fat and until no entrapment was noted distally. Care was made to protect the superficial palmar arch during my distal dissection. Next I utilized a nasal speculum placed on top of the transverse carpal ligament and utilize this to retract the subcutaneous fat and tissue and under direct loupe magnification was able to identify the transverse carpal ligament. Next I then protected the contents of the carpal tunnel and subsequently utilizing dissection scissors under loupe magnification completely released the transverse carpal ligament proximally into the antebrachial fascia. Care was made to protect the palmar cutaneous branch by keeping my scissors curved ulnarly. Once completely released, I then placed my [place] and had appropriate decompression of the carpal tunnel proximally as well as distally. I then inspected the contents of the carpal tunnel which showed an hourglass shape of the median nerve showing its compression. No masses were noted. Tendons appeared healthy. Wound was then thoroughly irrigated. Wet Ray-Dianelys was placed in incision and proceeded with the right ring finger trigger release. Under sterile aseptic technique local digital block was performed to the right ring finger.? Once appropriately anesthetized a standard oblique incision was made centering over the A1 georges following patient's flexor crease.? Sharp scalpel incision was made only through skin and then switched to Littler dissection scissors and spread longitudinally directly over the flexor tendon sheath.? I then mobilized both radially and ulnarly and Kasdan retractors were used and placed by my assistant store manager trainee to protect neurovascular bundle.? Next I visualized the A1 georges and this was incised with a scalpel.? I then switched to dissection scissors and released the A1 georges both proximally as well as distally to its entirety.? Significant tendon sheath fluid was noted consistent with inflammation.? Mild fraying of the flexor tendons noted but no tear.? At this point I utilized a rag nail and pulled the tendons FDS and FDP out of the incision and no?triggering was noted.? Finger was taken through range of motion no mechanical triggering noted. This point thorough irrigation was performed.? Tourniquet deflated hemostasis satisfactory with bipolar.? I then subsequently closed the incisions with interrupted nylon suture.? Xeroform 4 x 4's, Kerlix and an Bello wrap was applied for a bulky soft dressing and a volar splint was applied to keep the fingers extended. patient was then subsequently awakened from anesthesia and taken to PACU in stable condition tolerated procedure without issues. Disposition: Patient taken to PACU in stable condition recovering well. Dressing clean dry and intact. Patient will receive appropriate discharge instructions as well as pain medication postoperatively. Patient to follow-up with me in the office in 2 weeks. Patient will maintain splint to the right hand until follow-up with OT hand therapy. Patient should keep incision clean dry and intact. Patient understands if any questions or concerns may contact the office.
--- NOTE | 2025-03-23 10:55 | ANE.PACU2 ---
Inpatient post-anesthesia follow up: Airway intact: Yes Vital signs: Temperature 97 F Pulse Rate 78 Respiratory Rate 18 Blood Pressure 118/80 Pulse Oximetry 97 Oxygen Delivery Me thod Room Air Oxygen Flow Rate 5 Fraction of Inspir ed Oxygen Hydration adequate: Yes Nausea and vomiting: No Pain level: 1 Mental status: Baseline
== END 2025-03-23 10:58 | disposition home or self-care (01) ==
PROVIDERS: PCP Nurse Practitioner Family; Visit Provider Student in an Organized Health Care Education/Training Program
PROC: (CPT 64721; principal; 2025-03-23 08:50)
PROC: (CPT 64721; 2025-03-23 08:50)
DX: M65.341 Trigger finger, right ring finger (principal); G56.01 Carpal tunnel syndrome, right upper limb; I12.9 Hypertensive chronic kidney disease with stage 1 through stage 4 chronic kidney disease, or unspecified chronic kidney disease; N18.9 Chronic kidney disease, unspecified; M06.9 Rheumatoid arthritis, unspecified; F41.8 Other specified anxiety disorders; E78.2 Mixed hyperlipidemia; Z86.73 Personal history of transient ischemic attack (TIA), and cerebral infarction without residual deficits; F17.290 Nicotine dependence, other tobacco product, uncomplicated
CPT/HCPCS: 64721; 26055; J0131; J0690; J1885; J2250; J2704; J2795; J3010; J7030; J9999

== ENCOUNTER 2025-03-24 05:00 | Outpatient (CLI) | payer MEDICARE, MEDICAID, SELFPAY | END 2025-03-24 05:01 | disposition home or self-care (01) | LOC: SOT 04-13 13:00 | PROVIDERS: PCP Nurse Practitioner Family; Visit Provider Student in an Organized Health Care Education/Training Program | DX: Z46.89 Encounter for fitting and adjustment of other specified devices (principal); M65.341 Trigger finger, right ring finger; G56.01 Carpal tunnel syndrome, right upper limb | CPT/HCPCS: 97760; L3923 ==

== ENCOUNTER 2025-04-02 08:59 | Outpatient (CLI) | payer MEDICARE, MEDICAID, SELFPAY ==
--- NOTE | 2025-04-02 09:00 | US_ITS ---
WS: [id number] RIGHT UPPER QUADRANT ULTRASOUND HISTORY: R79.89 - Other specified abnormal findings of blood chemi... COMPARISON: 08/21/2021 Technically difficult evaluation RIGHT upper quadrant due to body habitus. Liver: 18.9 cm in length. Liver is poorly visualized. Liver is at least moderately enlarged. Marked attenuation and poorly visualized liver parenchyma. Mass would be difficult to exclude. Portal Vein: Limited. Gallbladder: As visualized negative. CBD: 0.5 cm Pancreas: Completely obscured. Right kidney: 10.5 cm in length. Normal size and echogenicity. No hydronephrosis or mass. Aorta and IVC: Limited. No ascites. US/US liver [id number] IMPRESSION: 1. Technically very difficult and limited RIGHT upper quadrant ultrasound eval uation due to body habitus. 2. Severe hepatic steatosis. The entire liver is poorly visualized. 3. No cholelithiasis identified.
== END 2025-04-02 09:00 | disposition home or self-care (01) ==
LOC: RAD 08:59
PROVIDERS: PCP Nurse Practitioner Family; Visit Provider Nurse Practitioner Family
DX: R79.89 Other specified abnormal findings of blood chemistry (principal); I51.7 Cardiomegaly; R93.9 Diagnostic imaging inconclusive due to excess body fat of patient; K76.0 Fatty (change of) liver, not elsewhere classified
CPT/HCPCS: 76705

== ENCOUNTER → 2025-04-06 09:39 | Outpatient (BNVA) | payer MEDICARE, MEDICAID, SELFPAY | PROVIDERS: PCP Nurse Practitioner Family; Visit Provider Physician Assistant | DX: Z98.890 Other specified postprocedural states (principal) | CPT/HCPCS: 99024 ==

== ENCOUNTER → 2025-04-26 08:30 | Outpatient (BNVA) | payer MEDICARE, MEDICAID, SELFPAY | PROVIDERS: PCP Nurse Practitioner Family; Visit Provider Specialist | DX: G43.711 Chronic migraine without aura, intractable, with status migrainosus (principal) | CPT/HCPCS: 64615; 99212; J0585; J9999 ==